=== PATIENT | female | born 1940 | race Caucasian/White ===

== ENCOUNTER 2019-04-12 06:26 | Day surgery (SDC) | payer MEDICARE, OTHER ==
[~2019-04-12] VITALS: Ht 170.2 cm; Wt 78.6 kg
[2019-04-12 06:53] LABS: HEMATOCRIT 37.2 % (36.0-48.0); HEMOGLOBIN 12.5 g/dL (12-16); MCH 28.5 pg (26.0-34.0); MCHC 33.6 g/dL (31.0-37.0); MCV 84.9 fL (80.0-100.0); MEAN PLATELET VOLUME 8.8 fL (7.4-10.4); RBC 4.38 10x6/uL (4.00-5.40); RDW 13.3 % (11.5-14.5); WBC 8.3 10x3/uL (4.8-10.8)
[2019-04-12] MEDS ORDERED: GLUCOPHAGE500 MG PO (07:43)
[2019-04-12] MEDS ORDERED: NORVASC5 MG PO (07:44)
[2019-04-12] MEDS ORDERED: EFFEXOR XR150 MG PO (07:44)
[2019-04-12] MEDS ORDERED: LIPITOR20 MG PO (07:44)
[2019-04-12] MEDS ORDERED: COZAAR100 MG PO (07:44)
[2019-04-12] MEDS ORDERED: DURICEF500 MG PO (07:45)
[2019-04-12 07:46] VITALS: BP 144/65; Ht 170.2 cm; Wt 78.6 kg
--- NOTE | 2019-04-12 13:26 | NUR ---
1223-REC'D FROM RR.AWAKE AND ALERT WITHOUT COMPLAINTS. VSS. IV PATENT AT [facility]. FRIEND AT BEDSIDE, CL IN EASY REACH.
--- NOTE | 2019-04-12 13:26 | NUR ---
1245-FULL LIQUID TRAY TO ROOM.DENIES COMPLAINTS
--- NOTE | 2019-04-12 13:44 | NUR ---
1340-DISCHARGE CRITERIA MET. REVIEWED DISCHARGE INSTRUCTIONS WITH PT. VERBALIZED UNDERSTANDING. ESCORTED OUT VIA W/C BY VOLUNTEER. DAUGHTER TO DRIVE HOME.
--- NOTE | 2019-04-12 18:16 | OP ---
PATIENT NAME: WENDY DURBIN MEDICAL RECORD: [id number] :39 LOCATION:D.OPS ADMISSION DATE: SURGEON: TRISTAN SCHWAB MD DATE OF OPERATION: 04/12/2019 PREOPERATIVE DIAGNOSIS: A 3.5 cm low rectal villous mass. POSTOPERATIVE DIAGNOSIS: A 3.5 cm low rectal villous mass. PROCEDURE: Transanal excision of low rectal mass. SURGEON: Tristan Schwab MD [employer] LEAD WORKER: None. BLOOD LOSS: 150 cc. ANESTHESIA: General. COMPLICATIONS: None. The risks, possible complications and alternatives to the procedure were explained to the patient. She elects to proceed. I specifically told her that due to the size of the mass and it may require 2 separate procedures to remove the whole thing. Additionally, if an invasive malignancy is identified, then it would be necessary to undergo radiation chemotherapy and probable resection. The procedure was made more difficult due to the fact the patient has a rectocele as well as a cystocele and the tissue between the rectum and the posterior wall of the vagina is very very thin. OPERATIVE COURSE: The patient was conveyed to the operating room electively on 04/12/2019. General anesthesia was induced by anesthesia staff. The patient was placed in the lithotomy position. The buttocks were taped laterally. The anus and perianal areas were sterilely prepped and draped. I dilated the anus to 3 fingers. U-shaped anal retractors were placed. The mass was easily identified and was from about 11 o'clock to 1 o'clock. I was able to put a retraction suture on the distal margin of tissue just distal to the mass. I was able to pull the mass down with this. I was able to get some hemostats, which were curved and placed them above the mass. The mass was not fixed to the underlying tissues. Then above this hemostat, I was able use an Endo GI stapler with blue loads to remove the mass. It appeared that the entire mass was removed along with a small margin of tissue. I saw no residual tissue. At the distal aspect of the staple line. This was oversewn with horizontal mattress 0 Vicryl sutures. I examined the posterior wall of the vagina. It had not been violated. There was no evidence of misael. No evidence of injury to the posterior wall of the vagina. No evidence of a rectovaginal fistula. Gelfoam was applied within the anus and lower rectum. A combination of steriod preparation and Marcaine were used to infiltrate the perianal tissues. Americaine was applied to the external hemorrhoids. The patient was then extubated and conveyed to post-anesthesia care unit where OPERATIVE REPORT [id number] WENDY DURBIN she was in stable condition. We are waiting on the pathologic evaluation to determine what is going to be the next best step. TRANSINT:[id number] Voice Confirmation ID: [id number] DOCUMENT ID: [id number] TRISTAN SCHWAB MD at 1816 CC: RADHA HAYWOOD DO and TAYLER PAUL DO [id number] DICTATION DATE: 04/12/19 1341 MOTOR BLOCK MECHANIC: 04/12/19 1443 [facility] 04/12/19 [facility] [address] [place] [address]
== END 2019-04-12 13:40 | disposition home or self-care (01) ==
LOC: D.OPS 06:26 → D.PAN 09:45 → D.OPS 10:15 → D.PAN 10:15 → D.OPS 13:40
PROVIDERS: Anesthesiology; ATTEND Surgery
DX: K62.89 Other specified diseases of anus and rectum (principal)